=== PATIENT | female | born 1990 | race Caucasian/White ===

== ENCOUNTER 2021-03-13 10:07 | Emergency (ER) | payer SELFPAY ==
[2021-03-13 10:45] VITALS: BP 113/74; PULSE 64; RESP 19; TEMP 37; O2SAT 96; BMI 32.8
--- NOTE | 2021-03-13 11:12 | HMH.EDUTC ---
[facility] [place]ression: Lymphadenopathy of head and neck Disposition: Home, Self-Care Condition on Discharge: Good Instructions: DI for Lymphadenopathy Additional Instructions: Apply a warm wet compress three or four times per day for the next several days to the affected area. Take the medication as directed. Follow up with your primary care doctor for a recheck of the area in 2 weeks or so. GO TO THE ER FOR ANY WORSENING SYMPTOMS OR CONCERNS. Prescriptions: Amoxicillin/Potassium Clav [Augmentin 500mg tab] 500 mg PO TID #30 tab Transmission Status: Received by [facility] Referrals: Provider,Referral, [Primary Care Provider] - Time of Disposition: 11:16 Medical Decision Making - Medical Records Medical records reviewed: No: I reviewed the patient's medical records. - Edi Inquiry Pt receiving controlled substance: No Vital Signs: 03/13/21 10:45 03/13/21 11:17 Temperature 98.6 F 98.6 F Temperature Source Oral Pulse Rate 64 Pulse Rate [Right Brachial] 64 Respiratory Rate 19 19 Blood Pressure 113/74 Blood Pressure [Right Arm] 113/74 Blood Pressure Mean [Right Arm] 87 Blood Pressure Source [Right Arm] Automatic Cuff Blood Pressure Position [Right Arm] Sitting 02 Sat by Pulse Oximetry 96 Oxygen Delivery Method Room Air - Lab Data Lab results reviewed: Yes: I reviewed the patient's lab results. Lab Results 03/13/21 10:59: Strep [facility] Negative Orders (Tests/Meds): ORDERS Category Date Time Status Strep Screen Confirmation Stat Micro 03/13/21 10:59 Received [facility] [place] - General Stated complaint: knot on jaw line Time Seen by Provider: 03/13/21 11:12 Mode of Arrival: Ambulatory Source of Information: Patient Limitations: No Limitations Description of Symptoms (Recalled from Triage Doc. by RN): PATIENT C/O KNOT TO RIGHT JAW LINE THAT SHE NOTICED FRIDAY NIGHT. SHE STATES WHEN SHE PRESSES ON IT IT FEELS A KIND OF NUMBNESS IN HER JAW LINE. DENIES PAIN OR ANY OTHER SYMPTOMS HEENT Symptoms (Recalled from RN notes): Yes Resp Symptoms (Recalled from RN notes): No Skin Symptoms (Recalled from RN notes): No MS Symptoms (Recalled from RN notes): No Functional Status (Recalled from RN notes): WNL - History of Present Illness Provider Complaint: She has noted a lump along her left jaw line. It has been present for the past 3 days. She denies any sore throat or other complaints. - Related Data Previous Rx's Medication Instructions Recorded Amoxicillin/Potassium Clav 500 mg PO TID #30 tab 03/13/21 [Augmentin 500mg tab] Allergies Allergy/AdvReac Type Severity Reaction Status Date / Time No Known Allergies Allergy Verified 03/13/21 10:53 - Worker's Comp Is this a Worker's Comp case?: No [facility] History - Hepatitis A Screen Drug use history?: No High risk sexual behaviors?: No History of sexually transmitted infection?: No Currently employed?: No Childcare worker?: No Do you have indoor plumbing?: Yes Do you have electricity?: Yes Attestation statement:: This patient has been screened for Hepatitis A risk factors. I have reviewed the patient's past medical history: Yes - Social History Alcohol Intake: never Occupational Status: other ROS Obtained: Yes All systems reviewed & no additional complaints - Constitutional Constitutional: Denies body ache, Denies chills, Denies fever(s), Denies poor appetite, Denies malaise - Eyes Eyes: Denies blurry vision, Denies change in vision, Denies eye discharge - ENT Ears, Nose, Mouth, and Throat: Denies dizziness, Denies otalgia, Denies sore throat - Musculoskeletal Musculoskeletal: Denies joint pain, Denies neck pain - Integumentary/Breasts Skin/Breast: Denies redness, Denies rash, Denies wounds - Neurologic Neurologic: Denies tingling/numbness/burning sensations - Hematologic/Lymphatic Henatologic/Lymphatic: Reports lymphadenopathy Phy
[2021-03-13 11:17] VITALS: BP 113/74; PULSE 64; RESP 19; TEMP 37; O2SAT 96
[2021-03-13 11:21] LABS: UTC Strep Screen (Rapid) Negative (Negative)
== END 2021-03-13 11:20 | disposition home or self-care (01) ==
PROVIDERS: Emergency Provider Nurse Practitioner Family
DX: R59.1 Generalized enlarged lymph nodes (principal)
CPT/HCPCS: 87880; 99202; G0463

== ENCOUNTER 2021-04-03 15:34 | Emergency (ER) | payer SELFPAY ==
--- NOTE | 2021-04-03 15:41 | XR_ITS ---
PROCEDURE: XR ANKLE LT MIN 3V CLINICAL INDICATION: TWISTED ANKLE Pain COMPARISON: No exams were available for comparison FINDINGS: There is a faint calcific density along the distal aspect the lateral malleolus. This is fairly well-circumscribed and may represent a dystrophic calcification. Avulsion fracture felt to be less likely but not totally excluded. The joint spaces are well-preserved. No significant degenerative/arthritic changes. No erosive changes evident. Other findings:Mild soft tissue swelling laterally IMPRESSION: Faint calcific density at the tip of the lateral malleolus and may be due to an area of dystrophic calcification. Avulsion fracture felt to be less likely but not totally excluded. There is mild soft tissue swelling laterally. Dictated by: Pedro Luis Amaya MD 04/03/2021 16:05 Pedro Luis Amaya MD in [place] 04/03/2021 16:05
[2021-04-03 15:45] VITALS: BP 114/79; PULSE 73; RESP 21; TEMP 36.8; O2SAT 99; BMI 31.6
--- NOTE | 2021-04-03 16:11 | HMH.EDUTC ---
[facility] [place] Clinical Impression: Ankle sprain Qualifiers: Encounter type: initial encounter Involved ligament of ankle: other ligament Laterality: left Qualified Code(s): S93.492A - Sprain of other ligament of left ankle, initial encounter Disposition: Home, Self-Care Condition on Discharge: Good Instructions: How To Perform RICE (Rest, Ice, Compress, Elevate), How to Apply an Ubaldo Wrap Additional Instructions: *Use Crutches to ambulate and get around *RICE, Rest the extremity, Ice 15-20 minutes 3-4 times daily, Compress- wear the ubaldo wrap as discussed as much as possible to help reduce swelling and pain, Elevate the extremity when at rest *Ubaldo wrap is for support and help control swelling, use it except in the shower. Be sure that is not to tight but not to loose either *Elevate when resting *Ibuprofen every 6-8 hours as needed for pain an inflammation. If need something more can take Tylenol in between doses of Ibuprofen to help Immediately follow up with your family doctor for new or worsening of symptoms, or no noticeable improvement over the next 3-5 days Follow up with your Family Doctor or Orthopedics if no improvement or any worsening of symptoms Return if needed Straight to ER if any life threatening symptoms Referrals: Gautam Ramsey MD [Primary Care Provider] - As needed Rip Matute MD [Staff Physician] - Time of Disposition: 16:20 Medical Decision Making - Edi Inquiry Pt receiving controlled substance: No Edi was queried for this patient: No Vital Signs: 04/03/21 15:45 Temperature 98.3 F Temperature Source Oral Pulse Rate [Right Brachial] 73 Respiratory Rate 21 Blood Pressure [Right Arm] 114/79 Blood Pressure Mean [Right Arm] 90 Blood Pressure Source [Right Arm] Automatic Cuff Blood Pressure Position [Right Arm] Sitting 02 Sat by Pulse Oximetry 99 Oxygen Delivery Method Room Air - Radiology Data #1 Image(s): Ankle (left) Image Reviewed: Yes I have reviewed radiologist's interpretation IMPRESSION: Faint calcific density at the tip of the lateral malleolus and may be due to an area of dystrophic calcification. Avulsion fracture felt to be less likely but not totally excluded. There is mild soft tissue swelling laterally. Medical Decision Narrative: Patient reports that she is paying out of pocket and declined walking boot and crutches States that she has ankle brace and crutches at home will place in ubaldo wrap have patient do RICE and follow up with with PCP or Ortho if no improvement [facility] [place] - General Stated complaint: ao 04/03 1430 FELL INJURED l KNEE&aNKLE Time Seen by Provider: 04/03/21 16:11 Mode of Arrival: Ambulatory Source of Information: Patient Limitations: No Limitations Description of Symptoms (Recalled from Triage Doc. by RN): PATIENT C/O INJURY TO LEFT KNEE AND ANKLE AFTER STEPPING WRONG OFF BACK PORCH APPROX 1450 TODAY HEENT Symptoms (Recalled from RN notes): No Resp Symptoms (Recalled from RN notes): No Skin Symptoms (Recalled from RN notes): No MS Symptoms (Recalled from RN notes): Yes Functional Status (Recalled from RN notes): WNL - History of Present Illness Provider Complaint: Patient states that she was coming down the steps at home when she slipped and fell State that she has abrasion to her right knee and twisted her left ankle State that she is having some pain and swelling on the inside of her left ankle and feels tight like it needs to pop States that when she moves it certain ways pain is worse - Related Data Allergies Allergy/AdvReac Type Severity Reaction Status Date / Time No Known Allergies Allergy Verified 03/16/21 08:56 - Worker's Comp Is this a Worker's Comp case?: No [facility] History - Hepatitis A Screen Drug use history?: No High risk sexual behaviors?: No History of sexually transmitted infection?: No Currently employed?: No Childcare worker?: No Do you have indoor plumbing?: Yes Do you have electricity?: Yes At
[2021-04-03 16:28] VITALS: BP 114/79; PULSE 73; RESP 21; TEMP 36.8; O2SAT 99
== END 2021-04-03 16:32 | disposition home or self-care (01) ==
PROVIDERS: Emergency Provider Nurse Practitioner; PCP Emergency Medicine
DX: S93.492A Sprain of other ligament of left ankle, initial encounter (principal); W10.9XXA Fall (on) (from) unspecified stairs and steps, initial encounter; Y92.019 Unspecified place in single-family (private) house as the place of occurrence of the external cause
CPT/HCPCS: 73610; 99202; G0463

== ENCOUNTER → 2021-12-05 13:00 | Outpatient (CLI) | payer BC, SELFPAY | PROVIDERS: PCP Physician Assistant; Visit Provider Obstetrics & Gynecology | DX: Z34.90 Encounter for supervision of normal pregnancy, unspecified, unspecified trimester (principal) | CPT/HCPCS: 36415; 84702 ==

== ENCOUNTER → 2021-12-07 10:48 | Outpatient (CLI) | payer BC, SELFPAY | PROVIDERS: PCP Physician Assistant; Visit Provider Obstetrics & Gynecology | DX: Z34.90 Encounter for supervision of normal pregnancy, unspecified, unspecified trimester (principal) | CPT/HCPCS: 36415; 84702 ==

== ENCOUNTER → 2021-12-13 09:09 | Outpatient (CLI) | payer BC, SELFPAY ==
--- NOTE | 2021-12-13 09:10 | US_ITS ---
FINAL REPORT CLINICAL HISTORY: dates-- early ob FINDINGS: PELVIC ULTRASOUND A single living intrauterine is present. A yolk sac is identified. The right ovary measures 3.2 cm. The left ovary measures 3.8 cm. There is a 1.9 cm presumed corpus luteum cyst in the left ovary. Cardiac activity is confirmed at 149 beats per minute. Estimated gestational age is 7 weeks 5 days based on a crown-rump length of 1.3 cm. Appropriate amount of fluid is present. IMPRESSION: Single living intrauterine with an estimated gestational age of 7 weeks 5 days. Presumed corpus luteum cyst in the left ovary. Reviewed, Interpreted and Dictated by Zelalem Law III, MD Transcribed by Donn Deleon Authenticated by Zelalem Law III, MD on 12/13/2021 11:00:[address] [facility]
== END ==
PROVIDERS: PCP Physician Assistant; Visit Provider Obstetrics & Gynecology
DX: Z34.90 Encounter for supervision of normal pregnancy, unspecified, unspecified trimester (principal)
CPT/HCPCS: 76801

== ENCOUNTER 2021-12-17 10:15 | Emergency (ER) | payer BC, SELFPAY ==
[2021-12-17 10:58] VITALS: BP 127/85; PULSE 102; RESP 19; TEMP 37.1; O2SAT 98; BMI 33.8
[2021-12-17 11:38] LABS: Strep Scrn Group A (Rapid) Negative (Negative)
--- NOTE | 2021-12-17 11:38 | HMH.EDUTC ---
[facility] [place] Clinical Impression: COVID-19 Qualifiers: Weeks of gestation: 10 weeks Qualified Code(s): Z3A.10 - 10 weeks gestation of Pharyngitis Qualifiers: Pharyngitis/tonsillitis etiology: unspecified etiology Qualified Code(s): J02.9 - Acute pharyngitis, unspecified Disposition: Home, Self-Care Condition on Discharge: Good Instructions: DI for Viral Pharyngitis, DI for Viral Syndrome Additional Instructions: Drink plenty of fluids. Take tylenol for pain or fever. Follow up with your regular doctor. Follow up with your registered nurse behavioral health doctor. GO TO THE ER FOR ANY WORSENING SYMPTOMS Quarantine until you know the results of your covid-19 test. Notify your school or workplace of your results and follow their instructions regarding return to work/school. The promethazine (phenergran---nausea medication) will make you drowsy, so don't drive or operate heavy machinery after taking it. Prescriptions: Promethazine HCl [Phenergan 25mg tab] 25 mg PO Q6H PRN #15 tab PRN Reason: Nausea And Vomiting Transmission Status: Received by [facility] Referrals: Karli Condon PA [Primary Care Provider] - Forms: Work/School Release Time of Disposition: 11:43 Medical Decision Making - Medical Records Medical records reviewed: No: I reviewed the patient's medical records. - Edi Inquiry Pt receiving controlled substance: No Vital Signs: 12/17/21 10:58 12/17/21 12:00 Temperature 98.8 F 98.8 F Temperature Source Oral Oral Pulse Rate 102 H Pulse Rate [Right Brachial] 102 H Respiratory Rate 19 16 Blood Pressure 127/83 Blood Pressure [Right Arm] 127/85 Blood Pressure Mean [Right Arm] 99 Blood Pressure Source Automatic Cuff Blood Pressure Source [Right Arm] Automatic Cuff Blood Pressure Position Sitting 02 Sat by Pulse Oximetry 98 Oxygen Delivery Method Room Air Room Air - Lab Data Lab results reviewed: Yes: I reviewed the patient's lab results. Lab Results 12/17/21 11:17: Group A Strep Rapid Negative Orders (Tests/Meds): ORDERS Category Date Time Status Strep Screen Confirmation Stat Micro 12/17/21 11:17 Received [facility] [place] HPI - General Stated complaint: sore throat,cough,runny nose Time Seen by Provider: 12/17/21 11:25 Mode of Arrival: Ambulatory Source of Information: Patient Limitations: No Limitations Description of Symptoms (Recalled from Triage Doc. by RN): pt reports sore throat, occasional cough, and runny nose HEENT Symptoms (Recalled from RN notes): Yes (sore throat, runny nose) Resp Symptoms (Recalled from RN notes): Yes (cough) Skin Symptoms (Recalled from RN notes): No MS Symptoms (Recalled from RN notes): No Functional Status (Recalled from RN notes): n/a - History of Present Illness Provider Complaint: She states that for the past 1 day, she has had sore throat, chills, mild body aches and nausea. She is 10 weeks . She denies any dysuria or other urinary complaints. She denies back or abdominal pain. She has not been vaccinated against covid-19. - Related Data Previous Rx's Medication Instructions Recorded cephalexin 500 mg capsule 500 mg PO Q12H 10 Days #20 cap 11/28/21 mupirocin calcium 2 % topical cream 1 applic TOPICAL BID #15 g 11/28/21 Promethazine HCl [Phenergan 25mg 25 mg PO Q6H PRN #15 tab 12/17/21 tab] Allergies Allergy/AdvReac Type Severity Reaction Status Date / Time No Known Allergies Allergy Verified 11/28/21 13:23 - Worker's Comp Is this a Worker's Comp case?: No [facility] History - Hepatitis A Screen Drug use history?: No High risk sexual behaviors?: No History of sexually transmitted infection?: No Currently employed?: No Childcare worker?: No Do you have indoor plumbing?: Yes Do you have electricity?: Yes Attestation statement:: This patient has been screened for Hepatitis A risk factors. I have reviewed the patient's past medical history: Yes [facility]
[2021-12-17 12:00] VITALS: BP 127/83; PULSE 102; RESP 16; TEMP 37.1; O2SAT 98
== END 2021-12-17 11:50 | disposition home or self-care (01) ==
PROVIDERS: Nurse Practitioner Family; Emergency Provider Nurse Practitioner; PCP Physician Assistant
DX: U07.1 COVID-19 (principal); Z3A.10 10 weeks gestation of pregnancy; J02.9 Acute pharyngitis, unspecified
CPT/HCPCS: 87430; 99202; C9803; G0463; U0003; U0005

== ENCOUNTER → 2021-12-28 14:20 | Outpatient (CLI) | payer BC, SELFPAY ==
[2021-12-28 15:11] LABS: Basophils % 0.2 % (0.1-2.0); Eosinophils # 0.1 K/mm3 (0.0-0.4); Eosinophils % 0.5 % (0.1-12.0); Hematocrit 40.9 % (37.0-47.0); Lymphocytes # 1.9 K/mm3 (0.7-4.5); Mean Corpuscular HGB Conc 34.2 g/dL (31.8-35.4); Mean Corpuscular Hemoglobin 31.2 pg (27.0-31.2); Mean Corpuscular Volume 91.2 fl (81-99); Mean Platelet Volume 7.9 fl (7.4-10.4); Monocytes # 0.6 K/mm3 (0.1-1.0); Monocytes % 5.9 % (1.7-9.3); Neutrophils # 7.8 K/mm3 (1.8-7.8); Neutrophils % 75.4 % (37.0-80.0); Platelet Count 304 K/mm3 (142-424); Red Blood Count 4.49 M/mm3 (4.20-5.40); Red Cell Distribution Width 12.3 % (11.5-17.5); White Blood Count 10.3 K/mm3 (4.8-10.8)
[2021-12-30 10:08] LABS: Hepatitis B Surface Antigen Negative (Negative); Hepatitis C Antibody <0.1 s/co ratio (0.0-0.9); Rapid Plasma Reagin Ab Titer Non Reactive (NonRea<1:1)
[2021-12-30 11:19] LABS: HIV Screen 4th Generation wRfx Non Reactive (Non Reactive)
[2022-01-01 04:30] LABS: Rubella Antibodies, IgG 4.78 index (Immune >0.99)
== END ==
PROVIDERS: Visit Provider Obstetrics & Gynecology
DX: Z34.90 Encounter for supervision of normal pregnancy, unspecified, unspecified trimester (principal)
CPT/HCPCS: 36415; 85025; 86592; 86703; 86762; 86850; 87340; 87380; G0432

== ENCOUNTER → 2022-03-08 13:53 | Outpatient (CLI) | payer BC, SELFPAY ==
--- NOTE | 2022-03-08 13:54 | US_ITS ---
FINAL REPORT CLINICAL HISTORY: anatomy scan FINDINGS: There is a single live intrauterine gestation. Presentation is breech. The cervix is closed and measures 5.5 cm. Placenta is posterior, grade 1. Cardiac activity is confirmed at injured 143 bpm. The fetus is active. Three-vessel cord with satisfactory umbilical cord insertion. Four-chamber heart is noted. AMNIOTIC FLUID: Appropriate amount. MEASUREMENTS: ULTRASOUND AGE: 20 weeks 5 days. GESTATION AGE: 18 weeks 6 days. ESTIMATED WEIGHT: 364 g GROWTH PERCENTILE: 85% BPD: 5 cm corresponding with 21 weeks 0 days. OFD: 6.2 cm corresponding with 21 weeks 0 days. HC: 17.7 cm corresponding with 20 weeks 2 days. AC: 15.8 cm corresponding with 21 weeks 0 days. FL: 3.3 cm corresponding with 20 weeks 2 days. CEREBELLUM: 2 cm corresponding with 20 weeks 2 days. HUMERUS: 3.2 cm corresponding with 20 weeks 6 days. HC/AC: 1.12 CI: 79% FL/BPD: 66% FL/AC: 21% IMPRESSION: Single living IUP with an ultrasound age of 20 weeks 5 days. Reviewed, Interpreted and Dictated by Antonio Shields MD Transcribed by Kenia Au Authenticated by Antonio Shields MD on 03/08/2022 03:18:35 PM [facility]
== END ==
PROVIDERS: PCP Physician Assistant; Visit Provider Obstetrics & Gynecology
DX: Z34.90 Encounter for supervision of normal pregnancy, unspecified, unspecified trimester (principal)
CPT/HCPCS: 76805

== ENCOUNTER → 2022-04-09 08:04 | Outpatient (POV) | payer BC, SELFPAY | PROVIDERS: Visit Provider Dermatology | DX: Z00.00 Encounter for general adult medical examination without abnormal findings (principal) ==

== ENCOUNTER → 2022-05-09 11:22 | Outpatient (CLI) | payer BC, SELFPAY ==
[2022-05-09 12:06] LABS: Basophils % 0.2 % (0.1-2.0); Eosinophils # 0.1 K/mm3 (0.0-0.4); Eosinophils % 0.7 % (0.1-12.0); Hemoglobin 12.8 g/dL (12.2-16.2); Lymphocytes # 1.3 K/mm3 (0.7-4.5); Lymphocytes % 13.1 % (10-50); Mean Corpuscular HGB Conc 35.5 g/dL (31.8-35.4); Mean Corpuscular Hemoglobin 31.7 pg (27.0-31.2); Mean Corpuscular Volume 89.2 fl (81-99); Mean Platelet Volume 8.6 fl (7.4-10.4); Monocytes # 0.5 K/mm3 (0.1-1.0); Monocytes % 4.9 % (1.7-9.3); Neutrophils # 8.3 K/mm3 (1.8-7.8); Neutrophils % 81.1 % (37.0-80.0); Platelet Count 242 K/mm3 (142-424); Red Blood Count 4.03 M/mm3 (4.20-5.40); Red Cell Distribution Width 13.2 % (11.5-17.5); White Blood Count 10.3 K/mm3 (4.8-10.8)
[2022-05-09 12:19] LABS: Glucose,Fasting 87 mg/dl (74-100)
[2022-05-09 13:30] VITALS: BP 142/73; BP 145/74; PULSE 72; PULSE 73; RESP 18; TEMP 36.4; O2SAT 98; O2SAT 99
[2022-05-09 13:43] LABS: Glucose 1 Hour 168 mg/dL (74-100)
== END ==
PROVIDERS: PCP Physician Assistant; Visit Provider Obstetrics & Gynecology
DX: Z34.90 Encounter for supervision of normal pregnancy, unspecified, unspecified trimester (principal); O26.899 Other specified pregnancy related conditions, unspecified trimester; Z67.91 Unspecified blood type, Rh negative
CPT/HCPCS: 36415; 82951; 85025; 96372; J2790

== ENCOUNTER → 2022-05-16 09:26 | Outpatient (CLI) | payer BC, SELFPAY ==
[2022-05-16 10:08] LABS: Glucose,Fasting 93 mg/dl (74-100)
[2022-05-16 12:21] LABS: Glucose 1 Hour 172 mg/dL (74-100)
[2022-05-16 12:22] LABS: Glucose 2 Hour 156 mg/dL (74-100)
[2022-05-16 13:20] LABS: Glucose 3 Hour 68 mg/dL (74-100)
== END ==
PROVIDERS: PCP Physician Assistant; Visit Provider Obstetrics & Gynecology
DX: Z34.90 Encounter for supervision of normal pregnancy, unspecified, unspecified trimester (principal)
CPT/HCPCS: 36415; 82951

== ENCOUNTER → 2022-05-29 10:03 | Outpatient (CLI) | payer BC, SELFPAY ==
--- NOTE | 2022-05-29 10:05 | US_ITS ---
FINAL REPORT CLINICAL HISTORY: Growth and CAM FINDINGS: There is a single live intrauterine gestation. Presentation is cephalic. Placenta is posterior, high, grade 2. Heart rate is 150 beats per minute. movements and practice breathing is noted. AMNIOTIC FLUID: Appropriate amount. CAM: 17.35 cm MEASUREMENTS: ULTRASOUND AGE: 32 weeks 5 days. GESTATION AGE: 31 weeks 4 days. ESTIMATED WEIGHT: 1878 g GROWTH PERCENTILE: 52% BPD: 8.4 cm corresponding with 34 weeks 0 days which is approximately 2 weeks greater than the abdominal circumference but since the HC/AC ratio is normal, this is of questionable significance. OFD: 10.7 cm corresponding with 33 weeks 6 days. HC: 30.2 cm corresponding with 33 weeks 4 days. AC: 27.6 cm corresponding with 31 weeks 5 days. FL: 6.1 cm corresponding with 31 weeks 4 days. HC/AC: 1.09 CI: 79% FL/BPD: 72% FL/AC: 22% IMPRESSION: Single living IUP with an ultrasound age of 32 weeks 5 days. CAM of 17.35 cm Reviewed, Interpreted and Dictated by Zelalem Law III, MD Transcribed by Kenia Au Authenticated and [facility]
== END ==
PROVIDERS: PCP Physician Assistant; Visit Provider Obstetrics & Gynecology
DX: O36.60X0 Maternal care for excessive fetal growth, unspecified trimester, not applicable or unspecified (principal)
CPT/HCPCS: 76816

== ENCOUNTER → 2022-07-06 09:00 | Outpatient (CLI) | payer BC, SELFPAY | PROVIDERS: Visit Provider Obstetrics & Gynecology | DX: Z34.90 Encounter for supervision of normal pregnancy, unspecified, unspecified trimester (principal); Z3A.35 35 weeks gestation of pregnancy | CPT/HCPCS: 86403 ==

== ENCOUNTER 2022-07-22 21:42 | Inpatient (IN) | payer BC, SELFPAY ==
[2022-07-22 20:00] VITALS: BMI 39.9
[2022-07-22 20:51] VITALS: BP 150/74; PULSE 72; RESP 18; TEMP 37.2; O2SAT 97; BMI 39.9
[2022-07-22 20:57] LABS: Microscopic, Urine URINE MICROSCOPIC (MICROSCOPIC)
[2022-07-22 21:05] LABS: Appearance,Urine CLEAR (Clear); Bilirubin,Urine Negative (Negative); Blood, Urine 1+ (Negative); Color,Urine YELLOW (Yellow); Glucose,Urine (UA) Negative (Negative); Ketones,Urine Negative (Negative); Leukocyte Esterase,Urine Negative (Negative); Nitrate,Urine Negative (Negative); Protein,Urine TRACE (Negative); Specific Gravity, Urine >= 1.030 (1.005-1.030); Urobilinogen,Urine 0.2 EU/dl (0.2)
[2022-07-22 21:24] LABS: Amphetamine/Metha Screen,Urine Negative ng/ml (<1000)
[2022-07-22 21:25] LABS: Barbiturates Screen,Urine Negative ng/ml (<200)
[2022-07-22 21:27] LABS: Cannabinoid Screen,Urine Negative ng/ml (<50); Cocaine Screen,Urine Negative ng/ml (<300)
[2022-07-22 21:28] LABS: Methadone Screen,Urine Negative ng/ml (<300); Opiate Screen,Urine Negative ng/ml (<300)
[2022-07-22 21:29] LABS: Phencyclidine Screen,Urine Negative ng/ml (<25)
[2022-07-22 21:34] LABS: Benzodiazepines Screen,Urine Negative ng/ml (<200)
[2022-07-22 21:40] LABS: Bacteria,Urine 2+ /lpf; Mucus,Urine 1+ /lpf
[2022-07-22 22:35] LABS: Coronavirus 19, PCR Not Detected (NotDetected); Influenza A, PCR Not Detected (NotDetected); Influenza B, PCR Not Detected (NotDetected)
[2022-07-22 22:38] LABS: Basophils # 0.1 K/mm3 (0-0.2); Basophils % 0.8 % (0.1-2.0); Eosinophils # 0.1 K/mm3 (0.0-0.4); Eosinophils % 0.3 % (0.1-12.0); Hematocrit 42.7 % (37.0-47.0); Lymphocytes % 5.8 % (10-50); Mean Corpuscular HGB Conc 32.7 g/dL (31.8-35.4); Mean Corpuscular Hemoglobin 31.4 pg (27.0-31.2); Mean Corpuscular Volume 95.9 fl (81-99); Mean Platelet Volume 9.9 fl (7.4-10.4); Monocytes # 0.7 K/mm3 (0.1-1.0); Monocytes % 4.1 % (1.7-9.3); Neutrophils # 15.1 K/mm3 (1.8-7.8); Platelet Count 236 K/mm3 (142-424); Red Blood Count 4.46 M/mm3 (4.20-5.40); Red Cell Distribution Width 14.2 % (11.5-17.5)
[2022-07-22 22:49] LABS: MANUAL DIFFERENTIAL MANUAL DIFFERENTIAL (MANUAL DIFF)
--- NOTE | 2022-07-22 23:21 | P.PN_ITS ---
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 [employer] Anesthesia Checklist Patient Identification Patient Identification: Arm Band Structural Data Admitted From: Inpatient Planned Operative Procedure/s: Labor Epidural Consent for Planned Operative Procedure(s) Verified: Yes Verified Documents: Surgical Consent and History and Physical Additional verifications Patient : Yes Anesthesia Reactions: No Airway Assessment C-Spine Mobility Assessed: Yes TMJ Mobility Assessed: Yes Dentition: Good Dentition Neurological Assessment Level of Consciousness: Awake and Alert Anesthesia Plan Anesthesia Risk discussed: Yes Anesthesia Plan: Verified ASA Class: II Anesthesia Type: Epidural
[2022-07-22 23:37] LABS: Lymphocytes % 9 % (10-50); Monocytes % 1 % (2-9); Neutrophils % 90 % (42-76); Ovalocytes 1+; Total Cells Counted 100
[2022-07-22 23:38] LABS: Platelet Estimate Normal
--- NOTE | 2022-07-23 05:13 | EXP.LABOR.NO ---
Labor Note Subjective: Date: 07/23/22 Time: 05:13 irregular contractions Objective: NST:: Reactive Contractions:: every 4-5 minutes Cervical Dilation:: 7-8 Effacement:: 100% Station: 0 Membranes: artificially ruptured Fetus: Monitoring?: Yes monitoring type:: Internal Comment:: I ruptured her membranes and there was clear fluid. I inserted an IUPC as well as scalp clip. Assessment: Labor progressing?: Yes Cephalopelvic disproportion?: No All Active Problems (Updated 07/19/22 @ 13:01 by Enriqueta Oneal MD) Abnormal glucose tolerance test (GTT) (Acute) Rh negative status during (Acute) Pharyngitis (Acute) COVID-19 (Acute) (Acute) Lymphadenopathy of head and neck (Acute) Ankle sprain (Acute) Plan: Anesthesia for epidural?: Yes Continue to labor down?: Yes Plan for ?: No Continue to monitor?: Yes Start pushing?: No Comment:: Her membranes were ruptured and there was clear fluid. She is 7-8 cm. Cervix has completely thinned out. There was a large bag of fluid. She is doing well.
--- NOTE | 2022-07-23 05:15 | EXP.HP ---
History of Present Illness *Admission Date: 07/22/22 *Reason for visit:: Labor *History of present illness: She is a 31-year-old 1 now para 0 at 39+3 weeks gestational age. She came in in active labor having regular contractions. She was initially found to be 2 cm however progressed to 3 cm. As result of that we admitted her for labor and delivery. 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 Review of Systems Review of systems:: pertinent systems reviewed and negative unless documented below Meds Home Medications and Allergies Home Medications Medication Instructions Recorded Confirmed Type mupirocin calcium 2 % topical cream 1 applic topical BID #15 grams 11/28/21 07/19/22 Rx ferrous sulfate 325 mg (65 mg 325 mg PO DAILY #30 tabs 12/28/21 07/19/22 Rx iron) tablet pediatric multivitamin no.76 1 tab PO DAILY 12/28/21 07/19/22 History (Kayla Complete chewable tablet) promethazine 25 mg tablet 25 mg PO Q6H PRN Nausea And 01/25/22 07/19/22 Rx Vomiting #15 tabs blood-glucose meter #1 ea 05/24/22 07/19/22 Rx ondansetron 4 mg disintegrating 4 mg PO Q4H PRN nausea and 06/27/22 07/19/22 Rx tablet vomiting #30 tabs New Prescriptions to Start Prescriptions: Allergies Allergy/AdvReac Type Severity Reaction Status Date / Time No Known Allergies Allergy Verified 07/19/22 10:43 Exam Data for Last 24 hours Vital signs and Labs for Last 24 Hours: Temp Pulse Resp BP Pulse Ox 98.9 F 72 18 150/74 H 97 07/22/22 20:51 07/22/22 20:51 07/22/22 20:51 07/22/22 20:51 07/22/22 20:51 Laboratory Results - last 24 hr 07/22/22 20:45: Urine Color Yellow, Urine Appearance Clear, Urine pH 6.0, Ur Specific Lamona >= 1.030, Urine Protein Trace, Urine Glucose (UA) Negative, Urine Ketones Negative, Urine Blood 1+, Urine Nitrate Negative, Urine Bilirubin Negative, Urine Urobilinogen 0.2, Ur Leukocyte Esterase Negative, Urine RBC 5-10, Urine WBC 5-10, Ur Squamous Epith Cells 10-20, Urine Bacteria 2+, Urine Mucus 1+ 07/22/22 20:45: Urine Opiates Screen Negative, Urine Methadone Screen Negative, Ur Barbituates Screen Negative, Ur Phencyclidine Scrn Negative, Ur Amphetamines Screen Negative, U Benzodiazepines Scrn Negative, Urine Cocaine Screen Negative, U Marijuana (THC) Screen Negative 07/22/22 22:01: WBC 17.0 H, RBC 4.46, Hgb 14.0, Hct 42.7, MCV 95.9, MCH 31.4 H, MCHC 32.7, RDW 14.2, Plt Count 236, MPV 9.9, Neut % (Auto) 89.0 H, Lymph % (Auto) 5.8 L, Sanborn % (Auto) 4.1, Eos % (Auto) 0.3, Baso % (Auto) 0.8, Neut # (Auto) 15.1 H, Lymph # (Auto) 1.0, Sanborn # (Auto) 0.7, Eos # (Auto) 0.1, Baso # (Auto) 0.1, Total Counted 100, Neutrophils % (Manual) 90 H, Lymphocytes % (Manual) 9 L, Monocytes % (Manual) 1 L, Platelet Estimate Normal, Ovalocytes 1+ 07/22/22 22:01: Blood Type O Negative, Antibody Screen Negative 07/22/22 22:03: SARS-CoV-2 (PCR) Not detected, Influenza A Untype (PCR) Not detected, Influenza Type B (PCR) Not detected I & O for Last 24 hours: Intake & Output 07/20/22 07/21/22 07/22/22 07/23/22 11:59 11:59 11:59 11:59 Weight 218 lb Constitutional Constitutional: no acute distress *Routine HEENT Exam Head: Present normocephalic Eye: Present EOMI and PERRL ENT: Present mucous membranes moist *Routine Neck Exam Neck: Present supple and full ROM *Routine Respiratory Exam Respiratory: Absent accessory muscle use (good air entry bilaterally), wheezes or crackles *Routine Cardiovascular Exam Cardiovascular: Present RRR; Absent murmur *Routine Abdominal Exam Abdominal: Present soft and normoactive bowel sounds; Absent tenderness, rebound, guarding or mass *Routine Rectal Exam Rectal:: deferred *Routine Genitalia Exam Genitalia:: normal fe
--- NOTE | 2022-07-23 05:37 | EXP.LABOR.NO ---
Labor Note Subjective: Date: 07/23/22 Time: 05:37 regular contraction Objective: NST:: Non-reactive Contractions:: every 2-3 minutes Cervical Dilation:: 9-10 Effacement:: 100% Station: 0 Membranes: artificially ruptured Fetus: Monitoring?: Yes monitoring type:: Internal Assessment: Labor progressing?: Yes Cephalopelvic disproportion?: No All Active Problems (Updated 07/23/22 @ 05:16 by Alejandro Zapata MD) Normal delivery at term (Acute) Abnormal glucose tolerance test (GTT) (Acute) Rh negative status during (Acute) Pharyngitis (Acute) COVID-19 (Acute) (Acute) Lymphadenopathy of head and neck (Acute) Ankle sprain (Acute) Plan: Anesthesia for epidural?: Yes Continue to labor down?: Yes Plan for ?: No Continue to monitor?: Yes Start pushing?: No Comment:: She just has a small anterior lip. The baby's head is still a little high. Will let the babies had come down a little bit more yet before we start pushing. She does have a Hernandez catheter in her bladder. She is having some early decelerations with each contraction likely as result of head compression. Heart rate is normal but there are no accelerations at this point in time. We will continue to watch closely and expect a vaginal delivery. She has changed from 7-9+ centimeters over the last half an hour or so.
--- NOTE | 2022-07-23 07:18 | EXP.LABOR.NO ---
Labor Note Subjective: Date: 07/23/22 Time: 07:18 regular contraction Objective: NST:: Reactive Contractions:: every 2-3 minutes Cervical Dilation:: 9-10 Effacement:: 100% Station: +1 Membranes: artificially ruptured Fetus: Monitoring?: Yes monitoring type:: Internal Assessment: Labor progressing?: Yes Cephalopelvic disproportion?: No All Active Problems (Updated 07/23/22 @ 05:16 by Alejandro Zapata MD) Normal delivery at term (Acute) Abnormal glucose tolerance test (GTT) (Acute) Rh negative status during (Acute) Pharyngitis (Acute) COVID-19 (Acute) (Acute) Lymphadenopathy of head and neck (Acute) Ankle sprain (Acute) Plan: Anesthesia for epidural?: Yes Continue to labor down?: Yes Plan for ?: No Continue to monitor?: Yes Start pushing?: Yes Continue pushing?: Yes Comment:: We have been pushing for about 20 minutes. Baby's head is still a little bit high. She does bring it down there with a contraction. There are decelerations with head compression but the heart rate recovers. We will continue with pushing. We will expect a vaginal delivery.
--- NOTE | 2022-07-23 07:26 | HMH.PHAINT1 ---
Pharmacy Intervention Comments: MEDICATION RECONCILIATION COMPLETED ON PATIENT USING EXTERNAL FILL HISTORY FROM PHARMACY. -HARMONY ANDERSEN, QUINND
[2022-07-23 11:43] LABS: Cord Blood PH 7.13 (7.35-7.45)
--- NOTE | 2022-07-23 12:45 | EXP.DN ---
Delivery Note Delivery Date:: 07/23/22 Delivery Time:: 10:45 Anesthesia Type: Epidural Was labor medically induced?: No Gestational age (weeks): 39 Infant delivered prior to 39 weeks?: No Gender: Male at 1 minute: 2 at 5 minutes: 6 LAC or MLE?: LAC Delivery Procedure:: Vaginal delivery of live born male over intact perineum. Outlet vacuum applied at +2 station because of maternal exhaustion and bradycardia with pushing Infant delivered with 2 pulls over intact perineum No nuchal cord No shoulder dystocia with delivery had poor tone and color at time of delivery and was taken to warmer for resuscitation immediately after delivery Apgars: 2 (1 min), 6 (5 min) and 9 (10 min) Terminal meconium noted Placenta spontaneously expressed and examined; noted to be complete/intact. 2nd degree perineal laceration repaired with 2-0 vicryl Right labial laceration hemostatic EBL: 300 cc All sponge/needle/instrument counts correct at conclusion of procedure Laceration:: vaginal and labial Placental Delivery Description: Spontaneous
[2022-07-24 07:46] LABS: Hematocrit 35.6 % (37.0-47.0); Hemoglobin 12.1 g/dL (12.2-16.2)
--- NOTE | 2022-07-24 12:22 | EXP.PN ---
Subjective *Date: 07/24/22 *Time: 12:22 Interval history: PPD # 1 s/p VAVD Feeling well. Pain controlled. She is breast feeding. Appropriate lochia. Voiding without difficulty. Passing flatus. Tolerating regular diet. Denies fever/chills, chest pain and shortness of breath. No headaches. Admits to lower extremity swelling. Exam Data for Last 24 hours Vital signs and Labs for Last 24 Hours: Temp Pulse Resp BP Pulse Ox 98.9 F 72 18 150/74 H 97 07/22/22 20:51 07/22/22 20:51 07/22/22 20:51 07/22/22 20:51 07/22/22 20:51 Laboratory Results - last 24 hr 07/24/22 06:40: Screen Negative, Baby's Rh Status Positive, Rhogam Infusion Rhogam release 07/24/22 06:40: Hgb 12.1 L, Hct 35.6 L I & O for Last 24 hours: Intake & Output 07/21/22 07/22/22 07/23/22 07/24/22 23:59 23:59 23:59 23:59 Weight 218 lb Microbiology Reports for the Last 24 Hours: Microbiology 07/22/22 20:45 Urine,Clean Catch Urine Culture - Preliminary Constitutional Constitutional: no acute distress and cooperative *Routine HEENT Exam Head: Present normocephalic Eye: Absent conjunctivae pink ENT: Present mucous membranes moist *Routine Neck Exam Neck: Present full ROM *Routine Respiratory Exam Respiratory: Present CTA bilaterally and normal respiratory effort *Routine Cardiovascular Exam Cardiovascular: Present RRR *Routine Abdominal Exam Abdominal: Present soft and normoactive bowel sounds; Absent tenderness or distended Comments: Uterine fundus firm and below umbilicus *Routine Extremities Exam Extremities: Present edema (+3 bilateral lower extremity edema) and full ROM; Absent calf tenderness *Routine Neurological Exam Neurological: Present alert and oriented X3 Routine Psychiatric Exam Psychiatric: Present normal affect and cooperative Assessment and Plan *Assessment and plan (1) Normal delivery at term: Status: Acute Category: Medical Code(s): O80 - Encounter for full-term uncomplicated delivery (2) Rh negative status during : Problem details: Fetus Rh positive Rhogam 05/09/22 Status: Acute Category: Medical Code(s): O26.899 - Other specified related conditions, unspecified trimester; Z67.91 - Unspecified blood type, Rh negative (3) Acute blood loss anemia: Status: Acute Category: Medical Code(s): D62 - Acute posthemorrhagic anemia Plan Continue routine care Encouraged increased ambulation Rhogam before discharge Plan d/c home tomorrow
[2022-07-24 22:10] VITALS: RESP 18
--- NOTE | 2022-07-25 12:17 | EXP.DC.SUM ---
General Admission date:: 07/22/22 Discharge date: 07/25/22 HPI HPI HPI: She is a 31-year-old 1 now para 0 at 39+3 weeks gestational age. She came in in active labor having regular contractions. She was initially found to be 2 cm however progressed to 3 cm. As result of that we admitted her for labor and delivery. Hospital Course Hospital Course Hospital Course: course uncomplicated She is discharged home on PPD #2 in stable condition She is ambulating and voiding without difficulty She is tolerating a regular diet Lochia is small Exam Data for Last 24 hours Vital signs and Labs for Last 24 Hours: Temp Pulse Resp BP Pulse Ox 98.9 F 72 18 150/74 H 97 07/22/22 20:51 07/22/22 20:51 07/24/22 22:10 07/22/22 20:51 07/22/22 20:51 I & O for Last 24 hours: Intake & Output 07/23/22 07/24/22 07/25/22 07/26/22 11:59 11:59 11:59 11:59 Weight 218 lb Microbiology Reports for the Last 24 Hours: Microbiology 07/22/22 20:45 Urine,Clean Catch Urine Culture - Final Multiple organisms, suggests contamination. Constitutional Constitutional: no acute distress *Routine HEENT Exam Head: Present normocephalic Eye: Absent conjunctival icterus or scleral injection ENT: Present mucous membranes moist *Routine Neck Exam Neck: Present supple *Routine Respiratory Exam Respiratory: Present CTA bilaterally *Routine Cardiovascular Exam Cardiovascular: Present RRR *Routine Abdominal Exam Abdominal: Present soft; Absent tenderness or distended *Routine Rectal Exam Patient deferred: visual exam and digital exam *Routine Exam Patient deferred: external exam Comments: Fundus firm below umbilicus *Routine Extremities Exam Extremities: Present edema *Routine Skin Exam Skin: Present intact and dry *Routine Neurological Exam Neurological: Present alert and oriented X3 Routine Psychiatric Exam Psychiatric: Present normal affect; Absent depressed DS: Diagnosis Discharge Diagnosis (1) Normal delivery at term: Status: Acute (2) Rh negative status during : Status: Acute Problem details: Fetus Rh positive Rhogam 05/09/22 (3) Acute blood loss anemia: Status: Acute Meds Home Medications and Allergies Home Medications Medication Instructions Recorded Confirmed Type pediatric multivitamin no.76 1 tab PO DAILY Supplement 12/28/21 07/23/22 History (Flintstones Complete chewable tablet) ferrous sulfate 325 mg (65 mg 325 mg PO DAILY Supplement 07/23/22 07/23/22 History iron) tablet ondansetron 4 mg disintegrating 4 mg PO Q4HP PRN nausea and 07/23/22 07/23/22 History tablet vomiting ibuprofen 400 mg tablet 800 mg PO Q6HP PRN Mild To 07/25/22 Rx Moderate Pain #30 tabs oxycodone 5 mg tablet 5 mg PO Q4HP PRN Moderate Pain #20 07/25/22 Rx tabs New Prescriptions to Start Prescriptions: Enriqueta Omalley oxycodone Enriqueta Oneal Allergies Allergy/AdvReac Type Severity Reaction Status Date / Time No Known Allergies Allergy Verified 07/19/22 10:43 Discharge Plan Disposition Patient Disposition: Home, Self-Care Discharge Order Discharge Orders: Discharge Order (Routine); Ordered 07/25/22 Ordered By: Enriqueta Oneal Follow up Plan Follow up with: Enriqueta Oneal MD [Staff Physician] - 08/06/22 2:45 pm Prescriptions/Medication Reconciliation: New ibuprofen 400 mg Tablet 800 mg PO Q6HP PRN (Reason: Mild To Moderate Pain) Qty: 30 0RF oxycodone 5 mg Tablet 5 mg PO Q4HP PRN (Reason: Moderate Pain) Qty: 20 0RF acetaminophen 325 mg Tablet 650 mg PO Q4HP PRN (Reason: Mild Pain) Qty: 0 0RF Continued Flintstones Complete Tablet,Chewable 1 tab PO DAILY ferrous sulfate 325 mg (65 mg iron) tablet 325 mg PO DAILY Discontinued ondansetron 4 mg tablet,disintegrating 4 mg PO Q4HP PRN (Reason: nabila
== END 2022-07-25 16:20 | disposition home or self-care (01) | DRG 807 ==
LOC: OBOUT 21:45 → OB 21:45
PROVIDERS: Admitting Provider Nurse Practitioner Obstetrics & Gynecology; PCP Physician Assistant; Visit Provider Obstetrics & Gynecology
DX: O70.1 Second degree perineal laceration during delivery (principal); Z37.0 Single live birth; Z3A.39 39 weeks gestation of pregnancy
CPT/HCPCS: 59409; 36415; 59025; 80305; 81001; 82800; 85007; 85014; 85018; 85025; 85461; 86850; 87086; 94761; C1758; C9803; G0283; J0595; J2405; J2790; U0003; U0005

== ENCOUNTER → 2022-09-26 14:30 | Outpatient (CLI) | payer OTHER, SELFPAY ==
[2022-09-26 18:31] LABS: Basophils # 0.1 K/mm3 (0-0.2); Basophils % 0.8 % (0.1-2.0); Eosinophils # 0.1 K/mm3 (0.0-0.4); Eosinophils % 0.8 % (0.1-12.0); Hematocrit 44.3 % (37.0-47.0); Hemoglobin 14.3 g/dL (12.2-16.2); Lymphocytes # 1.9 K/mm3 (0.7-4.5); Lymphocytes % 24.5 % (10-50); Mean Corpuscular HGB Conc 32.4 g/dL (31.8-35.4); Mean Corpuscular Hemoglobin 30.6 pg (27.0-31.2); Mean Corpuscular Volume 94.6 fl (81-99); Mean Platelet Volume 8.6 fl (7.4-10.4); Monocytes # 0.4 K/mm3 (0.1-1.0); Monocytes % 5.5 % (1.7-9.3); Neutrophils # 5.4 K/mm3 (1.8-7.8); Neutrophils % 68.4 % (37.0-80.0); Platelet Count 318 K/mm3 (142-424); Red Blood Count 4.68 M/mm3 (4.20-5.40); Red Cell Distribution Width 13.5 % (11.5-17.5); White Blood Count 7.9 K/mm3 (4.8-10.8)
[2022-09-26 20:18] LABS: Alanine Aminotransferase 25 U/L (12-78); Albumin Level 4.5 g/dl (3.5-5.0); Albumin/Globulin Ratio 1.6 (1.1-1.8); Alkaline Phosphatase 89 U/L (38-126); Anion Gap 17.4 mEq/L (5-15); Aspartate Amino Transferase 26 U/L (14-36); Bilirubin,Total 0.4 mg/dl (0.2-1.3); Blood Urea Nitrogen 9 mg/dl (7-17); Calcium 10.1 mg/dl (8.4-10.2); Carbon Dioxide 27 mmol/L (22.0-30.0); Chloride 100 mmol/L (98-107); Chol/HDL Ratio 4.6 (1-3.5); Cholesterol 204 mg/dl (140-200); Estimated Glomerular Filt Rate 97 ml/min (>60); GFR (African American) 117 ML/MIN (>60); Globulin 2.8 g/dL (1.3-3.2); Glucose 93 mg/dl (74-100); HDL Cholesterol 44 mg/dl (40-60); Potassium 4.4 mmoL/L (3.5-5.1); Sodium 140 mmol/L (136-145); Total Protein,Serum 7.3 g/dl (6.3-8.2); Triglycerides 134 mg/dl (30-150); VLDL Cholesterol 27 mg/dL (0-40)
[2022-09-26 20:30] LABS: Direct LDL Cholesterol 123.22 mg/dL (100-129)
[2022-09-26 20:35] LABS: 25-OH Vitamin D, Total 36.1 ng/mL (30-100)
[2022-09-26 20:49] LABS: Thyroid Stimulating Hormone 1.17 uIU/mL (0.465-4.68)
[2022-09-26 21:08] LABS: Vitamin B12 311 pg/mL (239-931)
== END ==
PROVIDERS: PCP Physician Assistant; Visit Provider Physician Assistant
DX: D62 Acute posthemorrhagic anemia (principal); R53.83 Other fatigue; E66.9 Obesity, unspecified; Z68.34 Body mass index [BMI] 34.0-34.9, adult
CPT/HCPCS: 80053; 80061; 82306; 82607; 84443; 85025

== ENCOUNTER 2025-07-08 10:29 | Outpatient (CLI) | payer OTHER, SELFPAY | END 2025-07-08 23:59 | LOC: LAB.DROPOF 07-11 10:29 | PROVIDERS: PCP Nurse Practitioner; Visit Provider Nurse Practitioner | DX: R30.9 Painful micturition, unspecified (principal) | CPT/HCPCS: 87086 ==

== ENCOUNTER 2025-09-10 11:30 | Emergency (ER) | payer OTHER, SELFPAY ==
[2025-09-10 11:40] VITALS: BP 124/79; PULSE 99; RESP 15; TEMP 36.8; O2SAT 96; BMI 29.2
[2025-09-10 12:01] VITALS: BP 136/87; PULSE 92; O2SAT 98
[2025-09-10 12:30] VITALS: BP 145/84; PULSE 77; O2SAT 97
--- NOTE | 2025-09-10 12:39 | ED_ITS ---
<Statement entered by Carlitos Oneal MD - 09/10/25 15:22> I was consulted by the KACIE, and we discussed the complexity of the problems being addressed. I approved the treatment and management plan for this patient's care in the emergency department, thus performing a substantive portion of the medical decision making. Carlitos Oneal MD, KIANA, FACEP Discharge Plan Disposition Patient Disposition: Home, Self-Care Condition: Good Prescriptions Prescriptions: No Action No Known Home Medications polymyxin B sulf-trimethoprim 10,000 unit- 1 mg/mL drops 2 drp Eye-Left Q6H 7 Days Qty: 10 0RF Rx Instructions: left eyes while awake; do not exceed 6 doses in 24 hours Referrals Follow up/Referrals: Provider,Referral, [Primary Care Provider, Medical] - See instructions Activity Restrictions/Add. Instructions Additional Instructions/Restrictions: Please return to the emergency department with any worsening signs or symptoms please keep the area clean and dry, please return to the emergency department or follow-up with your family physician in 5 to 7 days to have sutures removed. Clinical Impressions Clinical Impression: Chin laceration Instructions Patient Instructions: DI for Laceration Repair Print Language Print Language: Mongolian Discharge ED Provider: Carlitos Oneal General Adult HPI General Chief complaint: Skin/Abscess/Foreign Body Stated complaint: cut on chin Time Seen by Provider: 09/10/25 12:12 Mode of Arrival: Ambulatory Source of Information: Patient Description of Symptoms (Recalled from ER Triage Doc. by RN): pt reports slipping on the floor last night and hit her chin on the floor. denies LOC History of Present Illness HPI narrative: 34-year-old female presents to the emergency department accompanied by her family for a chin laceration that occurred last night, patient tells me last night she slipped , and fell striking her chin against the floor sustaining a 2 cm laceration to her chin, denies any LOC denies any presyncopal or syncopal event denies any dizziness denies any headache, denies any other acute injury, denies any fever chills chest pain shortness of breath, abdominal pain no nausea no vomiting no diarrhea, patient is a current everyday smoker, denies any alcohol or drug use, otherwise no real relevant past medical history takes no medications daily at home. Initial triage vitals are unremarkable. Of note, per nursing staff patient does feel safe at home, no suspected abuse or misconduct. Unsure of tetanus prophylaxis. please note that above description of symptoms, in this electronic medical record under categorization of recalled from ER triage doctor by RN are reflective of an initial nursing assessment, however, is not reflective of my full history and physical exam that was personally taken and clarified. Consequentially, this preceding description of symptoms, which may include the patient's categorized chief complaint in the EMR, do not reflect my personal clinical impression, and the ultimate description of history of present illness and patient stated complaints should be deferred to this section of the note. Unless stated otherwise or congruent with this section of the note, additional signs, symptoms, or incongruence should be interpreted as inaccurate with my clinical impression. Onset (ago): hour(s) Related Data Home Medications ?Medication ?Instructions ?Recorded ?Confirmed No Known Home Medications 08/11/2501/04 Previous Rx's ?Medication ?Instructions ?Recorded polymyxin B sulfate 10,000 2 drp Eye-Left Q6H 7 days # 10 mL 08/11/25 unit-trimethoprim 1 mg/mL eye drops Allergies Allergy/AdvReac Type Severity Reaction Status Date / Time No Known Allergies Allergy Verified 08/11/25 14:38 [facility] Disclaimer: The information contained in this section may have been updated after the patient was seen, as this information can be updated by other users. 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 Have you lived/traveled outside [place] in past 30 days?: No Contact w/someone who lives/traveled outside US past 30 days?: No Exposure to someone with infectious disease in past 14 days?: No Do you have a fever (greater than 100.4 F or 38 C)?: No Have you tested positive for COVID-19?: No Exposed to someone with COVID-19 in past 14 days?: No Do you have a sore throat?: No Do you have a cough?: No Do you have any weakness?: No Do you have any diarrhea?: No Are you experiencing any unusual bleeding?: No Do you have any muscle aches/pain?: No Do you have any abdominal pain?: No Are you experiencing loss of taste or smell?: No Other Medical History Have you received the Flu Vaccine for this season: No Have you received the Pneumonia Vaccine: No ROS Obtained: Yes All systems reviewed & no additional complaints except as documented Physical Exam General General appearance: alert and in no apparent distress Head Head exam: atraumatic and normocephalic Eye Eye exam: Present PERRL and EOMI ENT ENT exam: Present mucous membranes moist Neck Neck exam: Present normal inspection Chest Chest inspection: Present normal inspection and symmetric chest wall rise Respiratory Respiratory exam: Present normal lung sounds bilaterally; Absent respiratory distress Cardiovascular Cardiovascular exam: Present regular rate and normal rhythm Abdominal Exam Abdominal exam: Present soft; Absent tenderness Extremities Exam Extremities exam: Present normal inspection Neurological Exam Neurological exam: Present alert and oriented X3 Psychiatric Psychiatric exam: Present normal affect Skin Skin exam: Present warm, dry and other (Small 2 cm laceration over the chin, no active bleeding) Medical Decision Making Medical Records Medical records reviewed: Yes I reviewed the patient's medical records. Screening: Per USPSTF and CDC recommendations, given the prevalence of disease in our region, it is our hospital?s policy to screen for HIV and viral Hepatitis for all patients aged 18 and over and those with ongoing risk factors. Edi Inquiry Pt receiving controlled substance: No Edi was queried for this patient: No Vital Signs: 09/10/25 11:40 09/10/25 12:01 09/10/25 12:30 Temperature 98.2 F Temperature Source Oral Pulse Rate 92 H 77 Pulse Rate [Right] 99 H Respiratory Rate 15 Blood Pressure 136/87 145/84 H Blood Pressure [Right Arm] 124/79 Blood Pressure Mean Blood Pressure Mean [Right Arm] 94 02 Sat by Pulse Oximetry 96 98 97 Oxygen Delivery Method Room Air Room Air Room Air 09/10/25 13:00 Temperature Temperature Source Pulse Rate 74 Pulse Rate [Right] Respiratory Rate Blood Pressure 138/80 Blood Pressure [Right Arm] Blood Pressure Mean 99 Blood Pressure Mean [Right Arm] 02 Sat by Pulse Oximetry 97 Oxygen Delivery Method Orders (Tests/Meds): ED MEDICATIONS Discontinued Medications Generic Name Dose Route Start Last Admin Trade Name Freq PRN Reason Stop Dose Admin Lidocaine HCl 10 ml 09/10/25 12:45 Lidocaine 1% 10ml Mdv IJ 09/10/25 12:46 ONCE ONE Tetanus/Reduced Diphtheria/Acell Pertussis 0.5 ml 09/10/25 12:44 Tet/Diphth/Pert-Adult 0.5ml Syringe IM 09/10/25 12:45 .ONCE ONE Medical Decision Narrative: 34-year-old female presents the emergency department with a chin laceration that she sustained from a mechanical fall last night, differential diagnose include but not limited to, laceration, avulsion, among others. I discussed this patient's case with the attending physician Dr. Oneal Patient has a 2 cm laceration over her chin, denies any other red flag signs or symptoms denies any LOC no presyncopal or syncopal event describes as a mechanical fall, after copious irrigation with Hibiclens and normal saline, the wound was closed with four 6-0 nylon sutures utilizing approximately 3 mL of 1% lidocaine with local analgesia achieved. Patient tolerated procedure well no apparent complications. Patient's tetanus prophylaxis was updated here in the emergency department. Patient and family were given strict ED return precaution s return to the emergency department or follow-up with family doctor to have stitches removed in 5 to 7 days. Patient family voiced understanding and agreed with current treatment plan/discharge plan. Procedures Laceration Laceration 1: Site: face Size (cm): 2 Description: linear and other Depth: simple, single layer Local Anesthetic: lidocaine 1% Amount of anesthesia used (mL): 3 Pre-repair: irrigated extensively, deep structures intact and wound margins revised Skin layer closed with: nylon Size (cm): 6-0 Number of sutures: 4 Technique: simple, interrupted Critical Care Critical Care Time Critical Care Time: No
[2025-09-10 13:00] VITALS: BP 138/80; PULSE 74; O2SAT 97
[2025-09-10] MEDS: LIDOCAINE 1% 10ML MDV 10 ML IJ (13:23)
[2025-09-10] MEDS: TET/DIPHTH/PERT-ADULT 0.5ML SYRINGE 0.5 ML IM (13:23)
[2025-09-10 13:30] VITALS: BP 138/80; PULSE 98; RESP 18; TEMP 36.7; O2SAT 98
== END 2025-09-10 13:31 | disposition home or self-care (01) ==
PROVIDERS: Emergency Provider Student in an Organized Health Care Education/Training Program
DX: S01.81XA Laceration without foreign body of other part of head, initial encounter (principal); F17.210 Nicotine dependence, cigarettes, uncomplicated; W19.XXXA Unspecified fall, initial encounter
CPT/HCPCS: 12011; 90471; 90715; 99283; 99284; J2003

== ENCOUNTER 2025-10-03 14:50 | Outpatient (CLI) | payer OTHER, SELFPAY ==
--- NOTE | 2025-10-03 15:00 | US_ITS ---
PROCEDURE: US TRANSVAGINAL CLINICAL INDICATION: pelvic pain COMPARISON: No exams were available for comparison FINDINGS: Transvaginal sonographic images of the pelvis were obtained. UTERUS: 9.0cm x 6.0cmx 5.4cm anteverted with a combined endometrial thickness of 11.5mm. The endometrium is trilaminar. There is a nabothian cyst in the cervix. LEFT OVARY: 2.8 cmx1.9 cmx1.8cm with a volume of 5.2ml. There are multiple small peripheral follicles. RIGHT OVARY: 3.9 cmx 3.5cmx2.6 cm with a volume of 18.4ml. There is a dominant follicle measuring 2.7 cm x 2.5 cm x 1.6 cm. There are multiple small peripheral follicles. Both ovaries are seen and appear normal. Doppler flow to both ovaries are seen. There is no fluid in the cul-de-sac. IMPRESSION: 1. Anteverted, bulky uterus. The endometrium is trilaminar and measures 11.5 mm. 2. Both ovaries are seen and appear normal. The right ovary has a dominant follicle measuring 2.7 cm. Both ovaries have multiple small peripheral follicles. 3. No fluid in the cul-de-sac. Dictated by: Alejandro Zapata MD 10/03/2025 17:19 Alejandro Zapata MD in [place] 10/03/2025 17:19
== END 2025-10-03 23:59 | disposition home or self-care (01) ==
LOC: RAD 14:51
PROVIDERS: PCP Obstetrics & Gynecology; Visit Provider Obstetrics & Gynecology
DX: N83.01 Follicular cyst of right ovary (principal); N83.02 Follicular cyst of left ovary; N85.4 Malposition of uterus; N85.2 Hypertrophy of uterus; R10.20 Pelvic and perineal pain unspecified side
CPT/HCPCS: 76830